=== PATIENT | female | born 1955 | race Caucasian/White ===

== ENCOUNTER 2020-04-03 12:43 | Emergency (ER) | payer OTHER, SELFPAY ==
[2020-04-03 14:51] VITALS: BP 150/89; PULSE 95; RESP 18; TEMP 36.7; O2SAT 98
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
--- NOTE | 2020-04-03 15:05 | XR_ITS ---
EXAMINATION: XR HAND, RIGHT CLINICAL INFORMATION: Pain trauma COMPARISON: None available at the time of this dictation. TECHNIQUE: Frontal lateral oblique views of the hand were obtained. FINDINGS: Mildly displaced oblique fractures of the diaphysis of the third and fourth metacarpals. There is soft tissue swelling. The fracture line does not involve articular surfaces. No other fractures. Underlying mild degenerative osteoarthritis. XR/XR hand RT min 3V IMPRESSION: Mildly displaced nonarticular oblique fractures of the diaphysis third and fourth metacarpals.
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
== END 2020-04-03 17:32 | disposition home or self-care (01) ==
PROVIDERS: Emergency Provider Emergency Medicine; PCP Internal Medicine
DX: S62.101A Fracture of unspecified carpal bone, right wrist, initial encounter for closed fracture (principal); M25.531 Pain in right wrist; R07.89 Other chest pain; V43.52XA Car driver injured in collision with other type car in traffic accident, initial encounter; Y93.9 Activity, unspecified; Y92.410 Unspecified street and highway as the place of occurrence of the external cause
CPT/HCPCS: 71046; 73130; 99284

== ENCOUNTER → 2020-04-06 13:41 | Outpatient (BNVA) | payer OTHER, SELFPAY | PROVIDERS: PCP Pediatrics; Visit Provider Physician Assistant | DX: Z76.89 Persons encountering health services in other specified circumstances (principal) ==

== ENCOUNTER 2020-04-27 12:46 | Outpatient (REF) | payer OTHER, SELFPAY ==
--- NOTE | 2020-04-27 12:47 | XR_ITS ---
EXAMINATION: XR HAND, RIGHT CLINICAL INFORMATION: Fracture of the third metacarpal bone. COMPARISON: 04/03/2020 TECHNIQUE: PA, lateral, and oblique views of the right hand. FINDINGS: Oblique fractures of the third and fourth metacarpal shafts are again noted. Similar alignment of the fourth metacarpal shaft fracture given differences in technique. Similar alignment of the third metacarpal. No significant callus formation. Joint spaces are maintained. The soft tissues are unremarkable. XR/XR hand RT min 3V IMPRESSION: Third and fourth metacarpal shaft fractures are again noted. No significant change in alignment.
== END 2020-04-27 12:47 | disposition home or self-care (01) ==
LOC: HO.HOSX 12:46
PROVIDERS: Visit Provider Physician Assistant
DX: S62.302A Unspecified fracture of third metacarpal bone, right hand, initial encounter for closed fracture (principal); S62.304A Unspecified fracture of fourth metacarpal bone, right hand, initial encounter for closed fracture
CPT/HCPCS: 73130

== ENCOUNTER 2020-06-16 12:12 | Outpatient (REF) | payer OTHER, SELFPAY ==
--- NOTE | 2020-06-16 13:58 | XR_ITS ---
EXAMINATION: XR HAND, RIGHT CLINICAL INFORMATION: Fracture follow-up COMPARISON: 04/27/2020 04/03/2020 TECHNIQUE: PA, lateral, and oblique views of the right hand. FINDINGS: Again seen is obliquely oriented fractures of the third and fourth metacarpals, with a ulnar aspect comminution butterfly fragment along the third metacarpal. There is proximal dislocation of the distal fracture fragments resulting in shortening of the third and fourth metacarpals, the appearance of which is stable from 04/27/2020, but increased from 04/03/2020. There is ill-definition of the fracture fragments and surrounding callus formation which is increased in amount since the prior. XR/XR hand RT min 3V IMPRESSION: Stable alignment of the third and fourth metacarpal fractures with associated shortening of the third and fourth metacarpal. Increased callus formation since the previous exam.
== END 2020-06-16 12:13 | disposition home or self-care (01) ==
LOC: HO.HOSX 12:12
PROVIDERS: Visit Provider Physician Assistant
DX: S62.302D Unspecified fracture of third metacarpal bone, right hand, subsequent encounter for fracture with routine healing (principal); S62.304D Unspecified fracture of fourth metacarpal bone, right hand, subsequent encounter for fracture with routine healing
CPT/HCPCS: 73130